=== PATIENT | male | born 1935 | race Caucasian/White ===

== ENCOUNTER 2019-09-09 15:30 | Outpatient (RCR) | payer MEDICARE, SELFPAY ==
[2019-09-05 09:00] VITALS: BP 135/70; PULSE 58; RESP 18; TEMP 36.4; BMI 25.9
--- NOTE | 2019-09-05 19:44 | HP.PCM_ITS ---
(1) Ulcer of right lower extremity with fat layer exposed Status: Acute Current Visit: Yes Code(s): L97.912 - Non-pressure chronic ulcer of unspecified part of right lower leg with fat layer exposed (2) Memory impairment Status: Acute Current Visit: Yes Code(s): R41.3 - Other amnesia (3) Paroxysmal atrial fibrillation Status: Acute Current Visit: Yes Code(s): I48.0 - Paroxysmal atrial fibrillation (4) Venous insufficiency of both lower extremities Status: Chronic Current Visit: Yes Code(s): I87.2 - Venous insufficiency (chronic) (peripheral) History of Present Illness Date of Service: 09/05/19 Chief Complaint: Nonhealing right lower extremity ulcer. History of Wound: Lucy Hardy is a 83-year-old who presents to the wound center due to nonhealing right lower extremity ulcer. Is noted around the first of this month. Per patient, this started out as a blister which subsequently opened up. Has tried conservative measures at home without any significant improvement. Also reports lower extremity swelling. Feels well otherwise and denies chills, fever, nausea or change in his bowel habit. Past Medical History Past Medical History: Chronic Problems Venous insufficiency of both lower extremities (Chronic) Allergies/Adverse Reactions: Allergies No Known Allergies Allergy (Verified 09/05/19 09:20) Home Medications: Ambulatory Orders Medication Instructions Recorded Furosemide [Lasix] 20 mg PO DAILY 09/05/19 Warfarin Sodium [Coumadin] 4 mg PO 09/05/19 Smoking Status: Never smoker Review of Systems Constitutional: Denies: Anorexia, Chills, Fever, Malaise, Weakness Eyes: Denies: Blurred vision, Pain, Redness HEENT: Denies: Difficulty Swallowing, Head Aches Cardiovascular: Denies: Chest Pain, Claudication, Chest Pressure Respiratory: Denies: Hemoptysis Gastrointestinal: Denies: Abdominal Pain, Hematemesis, Vomiting Genitourinary: Denies: Hematuria - Physical Exam Vital Signs Temp Pulse Resp BP 97.5 F L 58 L 18 135/70 H 09/05/19 09:00 09/05/19 09:00 09/05/19 09:00 09/05/19 09:00 General: Alert, Cooperative, No apparent distress HEENT: Atraumatic, Normocephalic Oral: Moist Mucosa Neck: Supple Lungs: Normal air movement Cardiovascular: Regular rate, Regular Rhythm, Normal S1, Normal S2 Abdomen: Soft, Non Tender Extremities: No cyanosis, Edema Skin: Ulcer/ Wound Wound Measurements and Assessment WC - Nurse 1 - General Ulcer Measurement Start: 09/05/19 09:00 Freq: Status: Active Protocol: Activity Type Activity Date Activity User E-Sign Co-Sign Detail Recorded Client Recorded Date Recorded By Document 09/05/19 09:00 DL [id number] 09/05/19 09:15 DL 09/05/19 09:00 Wound Center Nurse 1 [Ulcer Assessment] #1 RShin -Current Size (cm) - Length 6 -Current Size (cm) - Width 4.8 -Current Size (cm) - Depth 0.1 -Total Square Cm 28.8 -Photo Taken Yes -Classification - Thickness Unclassifiable (Eschar Covered ) -Exudate Amt Small -Exudate Type Serosanguineous -Wound Margin Distinct, Outline Attached -Granulation Amt Small (1-33%) -Granulation Quality [place] -Necrosis Amt Large (67-100%) -Necrotic Tissue Type Eschar -Structure Exposed N/A -Texture (Nelia-wound Skin Appearance) Localized Edema ,Scarring -Moisture (Nelia-wound Skin Appearance No Abnormality ) -Color (Nelia-wound Skin Appearance) Hemosiderin Staining -Temperature (Nelia-wound Skin No Abnormality Appearance) (Pt Warm) -Tenderness on Palpation (Nelia-wound No Skin Appearance) -Ulcer Cleansing Wound Cleanser -Foul Odor after Cleansing No -Anesthetic Used 4% Lidocaine Solution [Edema Assessment] -Right Calf (cm) 38.3 -Right Ankle (cm) 26 -Left Calf (cm) 37 -Left Ankle (cm) 26.2 WC - Nurse 2 - General Ulcer CM Notes Start: 09/05/19 09:00 Freq: Status: Active Protocol: Activity Type Activity Date Activity User E-Sign Co-Sign Detail Recorded Client Recorded Date Recorded By Document 09/05/19 09:47 DV [id number] 09/05/19 09:49 DV 09/05/19 09:47 Wound Center Nurse 2 [Procedure/Treatment] #1 RShin -Time 09:48 -Correct Patient Yes -Correct Side, Site, Position Yes -Correct Procedure Yes -Procedure Performed Yes -Type of Procedure Debridement -Clinical Debridement Subcutaneous -Post Debridement Size (cm) - Length 7.0 -Post Debridement Size (cm) - Width 5.7 -Post Debridement Size (cm) - Depth 0.1 -Total Square Cm 39.90 -Wound/Ulcer Outcome Not Healed -Ulcer Cleansing Rinsed/ Irrigated with Saline -Foul Odor after Cleansing No -Bioengineered Tissue No -Bleeding Controlled with NA -Offloading No -Treatment Response Procedure Tolerated Well [See Physician Procedure note for Specifics] Pain Scale: 0-10 Numeric [Pain] -Is Patient Pain Free? Yes Musculoskeletal: No Muscle Wasting Neurological: Cranial nerves II-XII grossly intact Psych/Mental Status: Normal Affect Debridement Note Post-Debridement Measurements/Treatment WC - Nurse 2 - General Ulcer CM Notes Start: 09/05/19 09:00 Freq: Status: Active Protocol: Activity Type Activity Date Activity User E-Sign Co-Sign Detail Recorded Client Recorded Date Recorded By Document 09/05/19 09:47 DV [id number] 09/05/19 09:49 DV 09/05/19 09:47 Wound Center Nurse 2 #1 RShin -Time 09:48 -Correct Patient Yes -Correct Side, Site, Position Yes -Correct Procedure Yes -Procedure Performed Yes -Type of Procedure Debridement -Clinical Debridement Subcutaneous -Post Debridement Size (cm) - Length 7.0 -Post Debridement Size (cm) - Width 5.7 -Post Debridement Size (cm) - Depth 0.1 -Total Square Cm 39.90 -Wound/Ulcer Outcome Not Healed -Ulcer Cleansing Rinsed/ Irrigated with Saline -Foul Odor after Cleansing No -Bioengineered Tissue No -Bleeding Controlled with NA -Offloading No -Treatment Response Procedure Tolerated Well Pain Scale: 0-10 Numeric Is Patient Pain Free? Yes Wound debrided: Right lower extremity Type of Debridement: Excisional debridement Anesthesia Used: 4% Lidocaine Solution Depth: Down to and including healthy tissue, in the subcutaneous layer Percentage of wound debrided: 100 Instrument Used: 7mm curette Tissue Removed: Slough and devitalized tissue Severity: Fat Layer Exposed Amount of bleeding with debridement: Mild Bleeding Controlled with: Pressure Patient tolerated procedure well Assessment/Plan Active Problems Ulcer of right lower extremity with fat layer exposed (Acute) Memory impairment (Acute) Paroxysmal atrial fibrillation (Acute) Venous insufficiency of both lower extremities (Chronic) Assessment: Nonhealing right lower extremity ulcer. Bilateral lower extremity edema. Plan: Debridement done as documented above, procedure was well-tolerated. Aquacel extra with ABD over top. 3M wrap for edema management. Increase protein intake, leg elevation and exercise as tolerated also recommended. His questions were answered and he was advised to call with any further questions or concerns. Follow-up on Monday for nurse visit in 1 week with me. This note was generated with [employer] dictation software. It may contain incorrect words, spelling, and punctuation that were not noted in checking the note before signing. Multi Select Codes - Visit Charges Office Visit/Consults: 32531 OV L3 New - Integumentary Integumentary CPT Codes: 32969 Itzel subq tissue 20 sq cm/< - Additional square centimeter debrided, please refer to clinical note
[2019-09-09 14:38] VITALS: BP 139/97; PULSE 66; RESP 18; TEMP 36.4; BMI 25.9
== END 2019-09-10 23:59 ==
LOC: WC 15:30
PROVIDERS: Referring Provider Nurse Practitioner Primary Care; Visit Provider Internal Medicine
DX: I87.2 Venous insufficiency (chronic) (peripheral) (principal); I48.0 Paroxysmal atrial fibrillation; L97.812 Non-pressure chronic ulcer of other part of right lower leg with fat layer exposed; M79.89 Other specified soft tissue disorders; Z79.01 Long term (current) use of anticoagulants; Z79.899 Other long term (current) drug therapy; R60.0 Localized edema
CPT/HCPCS: 11042; 11045; 29581; 99203; G0463

== ENCOUNTER 2019-09-26 08:00 | Outpatient (RCR) | payer MEDICARE, SELFPAY ==
[2019-09-11 00:39] VITALS: BP 139/97; PULSE 66; RESP 18; TEMP 36.4
[2019-09-12 11:52] VITALS: BP 134/97; PULSE 58; RESP 18; TEMP 36.7; BMI 25.9
--- NOTE | 2019-09-12 12:25 | PN.PCM_ITS ---
(1) Ulcer of right lower extremity with fat layer exposed Status: Acute Current Visit: Yes Code(s): L97.912 - Non-pressure chronic ulcer of unspecified part of right lower leg with fat layer exposed (2) Memory impairment Status: Acute Current Visit: Yes Code(s): R41.3 - Other amnesia (3) Paroxysmal atrial fibrillation Status: Acute Current Visit: Yes Code(s): I48.0 - Paroxysmal atrial fibrillation (4) Venous insufficiency of both lower extremities Status: Chronic Current Visit: Yes Code(s): I87.2 - Venous insufficiency (chronic) (peripheral) Type of Wound Date of Service: 09/12/19 Chief Complaint: Nonhealing right lower extremity ulcer. History of Wound: Lucy Hardy is a 83-year-old who presents to the wound center due to nonhealing right lower extremity ulcer. Is noted around the first of this month. Per patient, this started out as a blister which subsequently opened up. Has tried conservative measures at home without any significant improvement. Also reports lower extremity swelling. Feels well otherwise and denies chills, fever, nausea or change in his bowel habit. Progress of Wound: Improving. No new concerns at this time. - Physical Exam Vital Signs Temp Pulse Resp BP 98.0 F 58 L 18 134/97 H 09/12/19 11:52 09/12/19 11:52 09/12/19 11:52 09/12/19 11:52 General: Alert, Cooperative, No apparent distress HEENT: Atraumatic, Normocephalic Oral: Moist Mucosa Neck: Supple Lungs: Normal air movement Extremities: No cyanosis, Edema Skin: Ulcer/ Wound Wound Measurements and Assessment WC - Nurse 1 - General Ulcer Measurement Start: 09/12/19 11:51 Freq: Status: Active Protocol: Activity Type Activity Date Activity User E-Sign Co-Sign Detail Recorded Client Recorded Date Recorded By Document 09/12/19 11:52 DL [id number] 09/12/19 11:56 DL 09/12/19 11:52 Wound Center Nurse 1 [Ulcer Assessment] #1 RShin -Combined with other wound No -Current Size (cm) - Length 1.6 -Current Size (cm) - Width 0.5 -Current Size (cm) - Depth 0.1 -Total Square Cm 0.80 -Photo Taken No -Epithelialization None Present -Tunneling No -Undermining/Tunneling No -Circular Undermining No -Classification - Thickness Full Thickness without Exposed Support Structure -Exudate Amt Medium -Exudate Type Serosanguineous -Wound Margin Flat & Intact -Granulation Amt None Present (0 %) -Granulation Quality N/A -Slough/Fibrin No -Necrosis Amt Medium (34-66%) -Necrotic Tissue Type Adherent Slough -Structure Exposed None/Limited to Skin Breakdown -Texture (Nelia-wound Skin Appearance) Assessed, Scarring -Moisture (Nelia-wound Skin Appearance Assessed, ) Weeping -Color (Nelia-wound Skin Appearance) Assessed, Hemosiderin Staining -Temperature (Nelia-wound Skin No Abnormality Appearance) (Pt Warm) -Tenderness on Palpation (Nelia-wound No Skin Appearance) -Ulcer Cleansing Wound Cleanser -Foul Odor after Cleansing No -Anesthetic Used 4% Lidocaine Solution [Edema Assessment] -Right Calf (cm) 34.2 -Right Ankle (cm) 23.0 WC - Nurse 2 - General Ulcer CM Notes Start: 09/12/19 11:51 Freq: Status: Active Protocol: Activity Type Activity Date Activity User E-Sign Co-Sign Detail Recorded Client Recorded Date Recorded By Document 09/12/19 12:10 MW [id number] 09/12/19 12:11 MW 09/12/19 12:10 Wound Center Nurse 2 [Procedure/Treatment] #1 RShin -Time 12:10 -Correct Patient Yes -Correct Side, Site, Position Yes -Correct Procedure Yes -Procedure Performed Yes -Type of Procedure Debridement -Clinical Debridement Subcutaneous -Post Debridement Size (cm) - Length 2.0 -Post Debridement Size (cm) - Width 0.5 -Post Debridement Size (cm) - Depth 0.1 -Total Square Cm 1.00 -Wound/Ulcer Outcome Not Healed -Ulcer Cleansing Rinsed/ Irrigated with Saline -Foul Odor after Cleansing No -Bioengineered Tissue No -Bleeding Controlled with Pressure -Offloading No -Treatment Response Procedure Tolerated Well [See Physician Procedure note for Specifics] Pain Scale: 0-10 Numeric [Pain] -Is Patient Pain Free? Yes Musculoskeletal: No Muscle Wasting Neurological: Cranial nerves II-XII grossly intact Psych/Mental Status: Normal Affect Debridement Note Post-Debridement Measurements/Treatment WC - Nurse 2 - General Ulcer CM Notes Start: 09/12/19 11:51 Freq: Status: Active Protocol: Activity Type Activity Date Activity User E-Sign Co-Sign Detail Recorded Client Recorded Date Recorded By Document 09/12/19 12:10 MW [id number] 09/12/19 12:11 MW 09/12/19 12:10 Wound Center Nurse 2 #1 RShin -Time 12:10 -Correct Patient Yes -Correct Side, Site, Position Yes -Correct Procedure Yes -Procedure Performed Yes -Type of Procedure Debridement -Clinical Debridement Subcutaneous -Post Debridement Size (cm) - Length 2.0 -Post Debridement Size (cm) - Width 0.5 -Post Debridement Size (cm) - Depth 0.1 -Total Square Cm 1.00 -Wound/Ulcer Outcome Not Healed -Ulcer Cleansing Rinsed/ Irrigated with Saline -Foul Odor after Cleansing No -Bioengineered Tissue No -Bleeding Controlled with Pressure -Offloading No -Treatment Response Procedure Tolerated Well Pain Scale: 0-10 Numeric Is Patient Pain Free? Yes Wound debrided: Right leg Type of Debridement: Excisional debridement Anesthesia Used: 4% Lidocaine Solution Depth: Down to and including healthy tissue, in the subcutaneous layer Percentage of wound debrided: 100 Instrument Used: 3mm curette Tissue Removed: Slough and devitalized tissue Severity: Fat Layer Exposed Amount of bleeding with debridement: Mild Bleeding Controlled with: Pressure Patient tolerated procedure well Assessment/Plan Active Problems Ulcer of right lower extremity with fat layer exposed (Acute) Memory impairment (Acute) Paroxysmal atrial fibrillation (Acute) Venous insufficiency of both lower extremities (Chronic) Assessment: Nonhealing right lower extremity ulcer. Bilateral lower extremity edema. Plan: Significant improvement in the past week. Debridement done as documented above, procedure was well-tolerated. Continue Aquacel extra with adaptic over top. 3M wrap for edema management. Increase protein intake, leg elevation and exercise as tolerated also recommended. His questions were answered and he was advised to call with any further questions or concerns. Follow-up on Monday for nurse visit and in 1 week with me. This note was generated with [employer] software. It may contain incorrect words, spelling, and punctuation that were not noted in checking the note before signing. [id number]: [id number] Itzel subq tissue 20 sq cm/<
[2019-09-16 16:30] VITALS: BP 146/76; PULSE 62; RESP 18; TEMP 37.1; BMI 25.9
[2019-09-19 11:58] VITALS: BP 141/94; PULSE 56; RESP 18; TEMP 36.7; BMI 25.9
--- NOTE | 2019-09-19 13:13 | PN.PCM_ITS ---
(1) Ulcer of right lower extremity with fat layer exposed Status: Acute Current Visit: Yes Code(s): L97.912 - Non-pressure chronic ulcer of unspecified part of right lower leg with fat layer exposed (2) Memory impairment Status: Acute Current Visit: Yes Code(s): R41.3 - Other amnesia (3) Paroxysmal atrial fibrillation Status: Acute Current Visit: Yes Code(s): I48.0 - Paroxysmal atrial fibrillation (4) Venous insufficiency of both lower extremities Status: Chronic Current Visit: Yes Code(s): I87.2 - Venous insufficiency (chronic) (peripheral) Type of Wound Date of Service: 09/19/19 Chief Complaint: Nonhealing right lower extremity ulcer. History of Wound: Lucy Hardy is a 83-year-old who presents to the wound center due to nonhealing right lower extremity ulcer. Is noted around the first of this month. Per patient, this started out as a blister which subsequently opened up. Has tried conservative measures at home without any significant improvement. Also reports lower extremity swelling. Feels well otherwise and denies chills, fever, nausea or change in his bowel habit. Progress of Wound: Improving. No new concerns at this time. Minimal area left. - Physical Exam Vital Signs Temp Pulse Resp BP 98.0 F 56 L 18 141/94 H 09/19/19 11:58 09/19/19 11:58 09/19/19 11:58 09/19/19 11:58 General: Alert, Oriented x3, Cooperative, No apparent distress HEENT: Atraumatic, Normocephalic Oral: Moist Mucosa Neck: Supple Lungs: Normal air movement Abdomen: Non Tender Extremities: No cyanosis Skin: Ulcer/ Wound Wound Measurements and Assessment WC - Nurse 1 - General Ulcer Measurement Start: 09/12/19 11:51 Freq: Status: Active Protocol: Activity Type Activity Date Activity User E-Sign Co-Sign Detail Recorded Client Recorded Date Recorded By Document 09/16/19 16:30 RB [id number] 09/16/19 16:32 RB Document 09/19/19 11:58 DV [id number] 09/19/19 12:08 DV 09/16/19 09/19/19 16:30 11:58 Wound Center Nurse 1 [Ulcer Assessment] #1 RShin -Combined with other wound No No -Current Size (cm) - Length 0.1 -Current Size (cm) - Width 0.1 -Current Size (cm) - Depth 0.1 -Total Square Cm 0.01 -Photo Taken No -Epithelialization None Present -Tunneling No -Undermining/Tunneling No -Circular Undermining No -Classification - Thickness Full Thickness without Exposed Support Structure -Exudate Amt Small None Present -Exudate Type Serosanguineous -Wound Margin Flat & Intact Flat & Intact -Granulation Amt Large (67-100%) None Present (0 %) -Granulation Quality N/A -Slough/Fibrin Yes Yes -Necrosis Amt Small (1-33%) -Necrotic Tissue Type Adherent Slough Adherent Slough -Structure Exposed N/A None/Limited to Skin Breakdown -Texture (Nelia-wound Skin Appearance) Assessed Assessed, Localized Edema -Moisture (Nelia-wound Skin Appearance Assessed No Abnormality, ) Assessed -Color (Nelia-wound Skin Appearance) Hemosiderin Assessed, Staining Ecchymosis -Temperature (Nelia-wound Skin No Abnormality No Abnormality Appearance) (Pt Warm) (Pt Warm) -Tenderness on Palpation (Nelia-wound No No Skin Appearance) -Ulcer Cleansing Wound Cleanser Rinsed/ Irrigated with Saline -Foul Odor after Cleansing No No -Anesthetic Used 4% Lidocaine Solution [Edema Assessment] -Lower Limb Edema Present Yes No -Right Calf (cm) 34.2 33.5 -Right Ankle (cm) 24 23.0 WC - Nurse 2 - General Ulcer CM Notes Start: 09/12/19 11:51 Freq: Status: Active Protocol: Activity Type Activity Date Activity User E-Sign Co-Sign Detail Recorded Client Recorded Date Recorded By Document 09/19/19 12:26 MW [id number] 09/19/19 12:26 MW 09/19/19 12:26 Wound Center Nurse 2 [Procedure/Treatment] #1 RShin -Time 12:26 -Correct Patient Yes -Correct Side, Site, Position Yes -Correct Procedure Yes -Procedure Performed Yes -Type of Procedure Debridement -Clinical Debridement Selective -Post Debridement Size (cm) - Length 0.1 -Post Debridement Size (cm) - Width 0.1 -Post Debridement Size (cm) - Depth 0.1 -Total Square Cm 0.01 -Wound/Ulcer Outcome Not Healed -Ulcer Cleansing Rinsed/ Irrigated with Saline -Foul Odor after Cleansing No -Bioengineered Tissue No -Bleeding Controlled with Pressure -Offloading No -Treatment Response Procedure Tolerated Well [See Physician Procedure note for Specifics] Pain Scale: 0-10 Numeric [Pain] -Is Patient Pain Free? Yes Musculoskeletal: No Muscle Wasting Neurological: Cranial nerves II-XII grossly intact Psych/Mental Status: Normal Affect Debridement Note Post-Debridement Measurements/Treatment WC - Nurse 2 - General Ulcer CM Notes Start: 09/12/19 11:51 Freq: Status: Active Protocol: Activity Type Activity Date Activity User E-Sign Co-Sign Detail Recorded Client Recorded Date Recorded By Document 09/12/19 12:10 MW [id number] 09/12/19 12:11 MW Document 09/19/19 12:26 MW [id number] 09/19/19 12:26 MW 09/12/19 09/19/19 12:10 12:26 Wound Center Nurse 2 #1 RShin -Time 12:10 12:26 -Correct Patient Yes Yes -Correct Side, Site, Position Yes Yes -Correct Procedure Yes Yes -Procedure Performed Yes Yes -Type of Procedure Debridement Debridement -Clinical Debridement Subcutaneous Selective -Post Debridement Size (cm) - Length 2.0 0.1 -Post Debridement Size (cm) - Width 0.5 0.1 -Post Debridement Size (cm) - Depth 0.1 0.1 -Total Square Cm 1.00 0.01 -Wound/Ulcer Outcome Not Healed Not Healed -Ulcer Cleansing Rinsed/ Rinsed/ Irrigated with Irrigated with Saline Saline -Foul Odor after Cleansing No No -Bioengineered Tissue No No -Bleeding Controlled with Pressure Pressure -Offloading No No -Treatment Response Procedure Procedure Tolerated Well Tolerated Well Pain Scale: 0-10 Numeric Is Patient Pain Free? Yes Yes Wound debrided: Right leg Type of Debridement: Selective debridement Anesthesia Used: 4% Lidocaine Solution Depth: Down to and including healthy tissue Percentage of wound debrided: 100 Tissue Removed: Devitalized tissue Severity: Fat Layer Exposed Amount of bleeding with debridement: Mild Bleeding Controlled with: Pressure Patient tolerated procedure well Assessment/Plan Active Problems Ulcer of right lower extremity with fat layer exposed (Acute) Memory impairment (Acute) Paroxysmal atrial fibrillation (Acute) Venous insufficiency of both lower extremities (Chronic) Assessment: Nonhealing right lower extremity ulcer. Bilateral lower extremity edema. Plan: Debridement done as documented above, procedure was well-tolerated. Adaptic and guaze daily. Double layer Tubigrip for edema management. Increase protein intake, leg elevation and exercise as tolerated also recommended. His questions were answered and he was advised to call with any further questions or concerns. Follow-up in 1 week. This note was generated with [employer] dictation software. It may contain incorrect words, spelling, and punctuation that were not noted in checking the note before signing. [id number]: [id number] Itzel subq tissue 20 sq cm/< - Selective debridement done.
[2019-09-26 08:08] VITALS: BP 146/81; PULSE 75; RESP 16; TEMP 36.1; BMI 25.9
--- NOTE | 2019-09-26 08:31 | PCM.WC.PN ---
(1) Ulcer of right lower extremity with fat layer exposed Status: Acute Current Visit: Yes Code(s): L97.912 - Non-pressure chronic ulcer of unspecified part of right lower leg with fat layer exposed (2) Memory impairment Status: Acute Current Visit: Yes Code(s): R41.3 - Other amnesia (3) Paroxysmal atrial fibrillation Status: Acute Current Visit: Yes Code(s): I48.0 - Paroxysmal atrial fibrillation (4) Venous insufficiency of both lower extremities Status: Chronic Current Visit: Yes Code(s): I87.2 - Venous insufficiency (chronic) (peripheral) Type of Wound Date of Service: 09/26/19 Chief Complaint: Nonhealing right lower extremity ulcer. History of Wound: Lucy Hardy is a 83-year-old who presents to the wound center due to nonhealing right lower extremity ulcer. Is noted around the first of this month. Per patient, this started out as a blister which subsequently opened up. Has tried conservative measures at home without any significant improvement. Also reports lower extremity swelling. Feels well otherwise and denies chills, fever, nausea or change in his bowel habit. Progress of Wound: Healed. No new concerns at this time. - Physical Exam Vital Signs Temp Pulse Resp BP 97.0 F L 75 16 146/81 H 09/26/19 08:08 09/26/19 08:08 09/26/19 08:08 09/26/19 08:08 General: Alert, Oriented x3, Cooperative, No apparent distress HEENT: Atraumatic, Normocephalic Oral: Moist Mucosa Neck: Supple Lungs: Normal air movement Extremities: No cyanosis, Edema Wound Measurements and Assessment WC - Nurse 1 - General Ulcer Measurement Start: 09/12/19 11:51 Freq: Status: Active Protocol: Activity Type Activity Date Activity User E-Sign Co-Sign Detail Recorded Client Recorded Date Recorded By Document 09/26/19 08:08 STUART [id number] 09/26/19 08:11 STUART 09/26/19 08:08 Wound Center Nurse 1 [Ulcer Assessment] #1 RShin -Combined with other wound No -Current Size (cm) - Length 0 -Current Size (cm) - Width 0 -Current Size (cm) - Depth 0 -Total Square Cm 0 -Photo Taken Yes -Epithelialization Large 67-100% [Edema Assessment] -Lower Limb Edema Present Yes -Right Calf (cm) 35.8 -Right Ankle (cm) 26.0 WC - Nurse 2 - General Ulcer CM Notes Start: 09/12/19 11:51 Freq: Status: Active Protocol: Activity Type Activity Date Activity User E-Sign Co-Sign Detail Recorded Client Recorded Date Recorded By Document 09/26/19 08:22 MW [id number] 09/26/19 08:23 MW 09/26/19 08:22 Wound Center Nurse 2 [Procedure/Treatment] #1 RShin -Time 08:23 -Correct Patient Yes -Procedure Performed No -Post Debridement Size (cm) - Length 0 -Post Debridement Size (cm) - Width 0 -Post Debridement Size (cm) - Depth 0 -Total Square Cm 0 -Wound/Ulcer Outcome Healed- Epithelialized [See Physician Procedure note for Specifics] Musculoskeletal: No Muscle Wasting Neurological: Cranial nerves II-XII grossly intact Psych/Mental Status: Normal Affect Debridement Note Post-Debridement Measurements/Treatment WC - Nurse 2 - General Ulcer CM Notes Start: 09/12/19 11:51 Freq: Status: Active Protocol: Activity Type Activity Date Activity User E-Sign Co-Sign Detail Recorded Client Recorded Date Recorded By Document 09/12/19 12:10 MW [id number] 09/12/19 12:11 MW Document 09/19/19 12:26 MW [id number] 09/19/19 12:26 MW Document 09/26/19 08:22 MW [id number] 09/26/19 08:23 MW 09/12/19 09/19/19 09/26/19 12:10 12:26 08:22 Wound Center Nurse 2 #1 RShin -Time 12:10 12:26 08:23 -Correct Patient Yes Yes Yes -Correct Side, Site, Position Yes Yes -Correct Procedure Yes Yes -Procedure Performed Yes Yes No -Type of Procedure Debridement Debridement -Clinical Debridement Subcutaneous Selective -Post Debridement Size (cm) - Length 2.0 0.1 0 -Post Debridement Size (cm) - Width 0.5 0.1 0 -Post Debridement Size (cm) - Depth 0.1 0.1 0 -Total Square Cm 1.00 0.01 0 -Wound/Ulcer Outcome Not Healed Not Healed Healed- Epithelialized -Ulcer Cleansing Rinsed/ Rinsed/ Irrigated with Irrigated with Saline Saline -Foul Odor after Cleansing No No -Bioengineered Tissue No No -Bleeding Controlled with Pressure Pressure -Offloading No No -Treatment Response Procedure Procedure Tolerated Well Tolerated Well Pain Scale: 0-10 Numeric Is Patient Pain Free? Yes Yes No debridement was completed today Assessment/Plan Active Problems Ulcer of right lower extremity with fat layer exposed (Acute) Memory impairment (Acute) Paroxysmal atrial fibrillation (Acute) Venous insufficiency of both lower extremities (Chronic) Assessment: Nonhealing right lower extremity ulcer. Bilateral lower extremity edema. Plan: Healed. No new concerns at this time. Compliance with compression, leg elevation and moisturizing his skin adequately recommended. His questions were answered and he was advised to call with any further questions or concerns. Discharge from wound clinic. This note was generated with [employer] dictation software. It may contain incorrect words, spelling, and punctuation that were not noted in checking the note before signing. Office Visits / Consults: [id number] OV L3 Est
== END 2019-10-11 23:59 ==
LOC: WC 08:00
PROVIDERS: Referring Provider Nurse Practitioner Primary Care; Visit Provider Internal Medicine
DX: I87.2 Venous insufficiency (chronic) (peripheral) (principal); I48.0 Paroxysmal atrial fibrillation; L97.812 Non-pressure chronic ulcer of other part of right lower leg with fat layer exposed; R41.3 Other amnesia; M79.89 Other specified soft tissue disorders; R60.0 Localized edema
CPT/HCPCS: 11042; 29581; 97597; 99213; G0463